=== PATIENT | male | born 1995 | race American Indian/Alaskan Native ===

== ENCOUNTER 2021-12-13 09:52 | Emergency (ER) | payer OTHER ==
[2021-12-13 09:54] VITALS: BP 126/90
--- NOTE | 2021-12-13 10:40 | Emergency Department Report ---
ED Chest Pain HPI - General Chief Complaint: Chest Pain Stated Complaint: CP Time Seen by Provider: 12/13/21 10:29 Source: EMS Mode of arrival: Ambulatory Limitations: No Limitations - History of Present Illness Initial Comments: 26 YO COMES TO ER VIA EMS P LIFTING TOILETS AT WORK AND DEVELOPING ACUTE CHEST PAIN- "TIGHT" SPASM LIKE. HAPPENED ON SAT TOO. PT FINE ON ARRIVAL TO ER AMBULATORY NAD HX ASTHMA HASNT SEEN MD IN YEARS Complaint: chest pain -: Sudden, hour(s) Pain Location: other Pain Radiation: none Severity: mild Quality: aching Consistency: intermittent Improves With: rest Worsens With: movement Treatments Prior to Arrival: none - Related Data Previous Rx's Medication Instructions Recorded Last Taken Type Albuterol Mdi (or & Nicu Only) 2 puff IH QID PRN #1 inhalation 12/13/21 Unknown Rx [ProAir HFA Inhaler] Allergies Allergy/AdvReac Type Severity Reaction Status Date / Time No Known Allergies Allergy Verified 12/13/21 09:54 Heart Score - HEART Score History: Slightly suspicious EKG: Normal Age: < 45 Risk factors: No known risk factors Troponin: < normal limit HEART Score: 0 - EKG Read Time Time EKG Completed: 10:00 EKG Read Time: 10:00 - Critical Actions Critical Actions: 0-3 pts:0.9-1.7%risk of adverse cardiac event.Candidate for discharge ED Review of Systems ROS: Stated complaint: CP Other details as noted in HPI ED Past Medical Hx - Medications Home Medications: Home Medications Medication Instructions Recorded Confirmed Last Taken Type Albuterol Mdi (or & Nicu Only) 2 puff IH QID PRN #1 inhalation 12/13/21 Unknown Rx [ProAir HFA Inhaler] ED Physical Exam - General Limitations: No Limitations ED Course Vital Signs 12/13/21 09:53 Temperature 98.1 F Pulse Rate 78 Respiratory 20 Rate Blood Pressure 126/90 [Right] O2 Sat by Pulse 100 Oximetry ED Medical Decision Making - EKG Data When compared to previous EKG there are: no significant change Interpretation: no acute changes - Radiology Data Radiology results: report reviewed, image reviewed - Medical Decision Making 12 LEAD NAP XRAY NAP PT EXAM WNL PAIN WITH MOVEMENT HAPPENED SATURDAY WELL HX ASTHMA NO WHEEZING ONE EXAM AMBULATORY NAD Vital Signs 12/13/21 09:53 Temperature 98.1 F Pulse Rate 78 Respiratory 20 Rate Blood Pressure 126/90 [Right] O2 Sat by Pulse 100 Oximetry DC HOME WITH DC PLAN OF CARE INCLUDING FOLLOW UP / USE OF INHALER/ ACTIVITY PT VERBALIZES UNDERSTANDING OF PLAN OF CARE - Differential Diagnosis MUSCLE V CARDIAC V PLEURITIC PAIN Critical care attestation.: If time is entered above; I have spent that time in minutes in the direct care of this critically ill patient, excluding procedure time. ED Disposition Clinical Impression: Musculoskeletal chest pain, History of asthma Disposition: HOME / SELF CARE / HOMELESS Is pt being admited?: No Does the pt Need Aspirin: No Condition: Stable Instructions: Nonspecific Chest Pain, Adult Additional Instructions: FOLLOW UP WITH PCP IF PERSISTS REFERRAL BELOW ALBUTEROL FOR WHEEZING SHOULD YOU NEED IT Prescriptions: Albuterol Mdi (or & Nicu Only) [ProAir HFA Inhaler] 2 puff IH QID PRN #1 inhalation PRN Reason: Shortness Of Breath Referrals: JOSEPH BRUSH MD [Staff Physician] - 3-5 Days Forms: Work/School Release Form(ED)
--- NOTE | 2021-12-13 10:42 | XRay Report ---
XR chest routine 2V INDICATION / CLINICAL INFORMATION: chest pain. COMPARISON: None available. FINDINGS: SUPPORT DEVICES: None. HEART /PULMONARY VASCULATURE: No significant abnormality. LUNGS / PLEURA: No significant pulmonary or pleural abnormality. No pneumothorax. ADDITIONAL FINDINGS: No significant additional findings. IMPRESSION: 1. No acute findings. Signer Name: Rafy Curtis MD Signed: 12/13/2021 10:38 AM Workstation Name: [id number]
--- NOTE | 2021-12-15 14:27 | Electrocardiograph Report ---
[facility] Test Date: 2021-12-13 Test Time: 10:25:42 Pat Name: DEBBIE SQUIRES Department: Room: Gender: M Vascular Technician: GONSALO : 1995 Requested By: SHEILA DAVENPORT Order Number: [id number] Reading MD: Dexter Ortez Measurements Intervals [place] Rate: 61 P: 30 CO: 177 QRS: 74 QRSD: 78 T: 34 QT: 385 QTc: 390 Interpretive Statements Sinus rhythm Nonspecific early repolarization ST changes No previous ECG available for comparison Electronically Signed On 12-15-2021 14:27:32 EST by Dexter Ortez
== END 2021-12-13 11:17 | disposition home or self-care (01) ==
LOC: ED 09:52
DX: R07.9 Chest pain, unspecified (principal); J45.909 Unspecified asthma, uncomplicated
CPT/HCPCS: 71046; 93005; 99283